=== PATIENT | male | born 1970 | race Caucasian/White ===

== ENCOUNTER 2017-12-01 09:54 | Emergency (ER) | payer BC ==
[2017-12-01] MEDS ORDERED: ONDANSETRON HCL INJ/PF 4 MG/2 ML SDV IV ONE (10:20)
[2017-12-01] MEDS ORDERED: NORMAL SALINE 1000 ML 1,000 ML IV ONE (10:20)
[2017-12-01] MEDS ORDERED: MORPHINE SULFATE 10 MG/ML INJ IV ONE (10:20)
--- NOTE | 2017-12-01 10:33 | RADIOLOGY REPORT (SQ) ---
EXAM DESCRIPTION: SHOULDER LEFT 2 OR MORE VIEWS COMPLETED DATE/TIME: 12/01/2017 10:21 am REASON FOR STUDY: left shoulder pain with anterior deformity after fall COMPARISON: None. NUMBER OF VIEWS: Two views. TECHNIQUE: Frontal and scapular Y-views images acquired of the left shoulder. LIMITATIONS: None. FINDINGS: MINERALIZATION: Normal. BONES: No acute fracture. Humerus is dislocated anteriorly and slightly inferiorly relative to the g lenoid. JOINTS: No dislocation. VISUALIZED LUNGS AND RIBS: No pneumothorax. No rib fracture. SOFT TISSUES: No radiopaque foreign body. OTHER: No other significant finding. IMPRESSION: Anterior dislocation of the humerus. TECHNICAL DOCUMENTATION: JOB ID: [id number] [employer]- All Rights Reserved Reading location - IP/workstation name: [email or web address]
[2017-12-01] MEDS ORDERED: HYDROMORPHONE HCL INJ/PF 2 MG/ML AMPULE IV ONE (11:04)
[2017-12-01] MEDS ORDERED: FENTANYL CITRATE INJ/PF 100 MCG/2 ML AMPUL IV ONE (11:04)
[2017-12-01] MEDS ORDERED: BUPIVACAINE HCL 0.5 % INJ/PF 30 ML SDV INJ ONE (11:04)
[2017-12-01] MEDS ORDERED: MIDAZOLAM 2 MG/2 ML INJ IV ONE (11:04)
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
--- NOTE | 2017-12-01 13:26 | RADIOLOGY REPORT (SQ) ---
EXAM DESCRIPTION: SHOULDER LEFT 1 VIEW COMPLETED DATE/TIME: 12/01/2017 1:09 pm REASON FOR STUDY: post reduction COMPARISON: Left shoulder two views 12/01/2017, 1043 hours NUMBER OF VIEWS: AP view left shoulder, one view. TECHNIQUE: AP view left shoulder images acquired of the left shoulder. LIMITATIONS: None. FINDINGS: Post reduction. Normal alignment at the left glenohumeral joint. Hill-Sachs deformity in the left humeral head. Acute bony Bankart fragment along the inferior glenoid rim. IMPRESSION: Post reduction. Normal alignment at the left glenohumeral joint. Hill-Sachs deformity in the left humeral head. Acute bony Bankart fragment along the inferior glenoid rim. TECHNICAL DOCUMENTATION: JOB ID: [id number] [email or web address]- All Rights Reserved Reading location - IP/workstation name: [email or web address]
[2017-12-01 14:30] VITALS: BP 127/83
== END 2017-12-01 14:31 | disposition home or self-care (01) ==
LOC: ER 09:54
PROC: 0RSKXZZ Reposition Left Shoulder Joint, External Approach (ICD-10-PCS; principal; 2017-12-01)
DX: S43.005A Unspecified dislocation of left shoulder joint, initial encounter (principal); S43.492A Other sprain of left shoulder joint, initial encounter; M79.602 Pain in left arm; X58.XXXA Exposure to other specified factors, initial encounter
CPT/HCPCS: 99283; 96361; 99153; 99152; 96374; 96375; 73020; 73030; 23650; L3650; J2250; J3490; J3010; J2270; J1170; J2405; J7030